=== PATIENT | female | born 1975 | race Asian ===

== ENCOUNTER 2024-01-01 09:31 | Emergency (ER) | payer OTHER ==
[2024-01-01] MEDS ORDERED: predniSONE 10 MG TAB ONE (10:03)
[2024-01-01] MEDS ORDERED: predniSONE 20 MG TAB ONE (10:03)
[2024-01-01] MEDS ORDERED: Famotidine 20 MG TAB ONE (10:03)
[2024-01-01] MEDS ORDERED: diphenhydrAMINE 25 MG CAP ONE (10:03)
[2024-01-01] MEDS ORDERED: Triple Antibiotic Oint 1 GM Packet ONE (10:08)
== END 2024-01-01 10:20 | disposition home or self-care (01) ==
LOC: MADERS 09:31
DX: T78.40XA Allergy, unspecified, initial encounter (principal); I10 Essential (primary) hypertension
CPT/HCPCS: 99282; J7512